=== PATIENT | male | born 1960 | race Caucasian/White ===

== ENCOUNTER 2023-11-13 13:36 | Outpatient (CLI) | payer BC | END 2023-11-13 13:37 | disposition home or self-care (01) | LOC: ENDO/OP 13:36 | PROVIDERS: ATTEND Physician Assistant Medical | DX: K22.70 Barrett's esophagus without dysplasia (principal); K21.9 Gastro-esophageal reflux disease without esophagitis; K44.9 Diaphragmatic hernia without obstruction or gangrene; K25.3 Acute gastric ulcer without hemorrhage or perforation; R53.83 Other fatigue; Z86.010 Personal history of colon polyps | CPT/HCPCS: 91010 ==